=== PATIENT | male | born 1955 | race African-American/Black ===

== ENCOUNTER → 2018-10-08 | Outpatient (CLI) | payer OTHER ==
--- NOTE | 2018-10-08 10:58 | CT ---
EXAMINATION TYPE: CT chest w con DATE OF EXAM: 10/08/2018 COMPARISON: NONE HISTORY: History of asbestos and coal dust exposure. CT DLP: 726 mGycm. Automated Exposure Control for Dose Reduction was Utilized. TECHNIQUE: CT scan of the thorax is performed following with IV Contrast, patient injected with 100 mL of Isovue 300. FINDINGS: LUNGS: The lungs are grossly clear, there is no concerning parenchymal mass or nodule identified. T here is no pleural effusion or pneumothorax seen. The tracheobronchial tree is patent. No calcified pleural plaques are evident. MEDIASTINUM: There are no greater than 1 cm hilar or mediastinal lymph nodes. No cardiomegaly or pe ricardial effusion is seen. There is moderate three-vessel coronary artery calcification which is no crista marker for underlying coronary artery disease. OTHER: Moderate to severe multilevel spurring in the spine. Mild to Moderate multilevel disc space na rrowing with vacuum disc phenomena. IMPRESSION: No significant acute or chronic pulmonary process.
== END | disposition home or self-care (01) ==
LOC: RADCTMAIN 07:41
PROVIDERS: ATTEND Family Medicine
DX: Z77.090 Contact with and (suspected) exposure to asbestos (principal)
CPT/HCPCS: 82565; 84520; 71260; Q9967

== ENCOUNTER → 2018-11-24 | Outpatient (CLI) | payer OTHER ==
[~2018-11-24] MED LIST: REGADENOSON 0.4 MG/5 ML SYRINGE IV ONE
--- NOTE | 2018-11-24 10:52 | EST ---
EXERCISE STRESS DATE OF SERVICE: 11/24/2018 AGE: 63 SEX: Male HT: 66" WT: 215 pounds PROTOCOL: Lexiscan Cardiolite STAGE: DURATION OF EXERCISE: HEART RATE REST: 66 BLOOD PRESSURE REST: 153/87 MAXIMUM HEART RATE ACHIEVED: 84 MAXIMUM BLOOD PRESSURE: 153/87 85% MPHR: 133 100% MPHR: 157 METS: INDICATIONS: Abnormal CT scan. CLINICAL INFORMATION: Baseline EKG shows sinus rhythm, normal axis, normal intervals. Patient was given intravenous Lexiscan as per protocol. Did not have chest pain or diagnostic ST-segment depression. CONCLUSIONS: 1. Negative stress test by EKG criteria. 2. Cardiolite portion of the stress test will be reported separately. MMODL / IJN: [id number] /
--- NOTE | 2018-11-24 17:59 | NM ---
EXAMINATION TYPE: NM stress lexiscan cardiolite DATE OF EXAM: 11/24/2018 COMPARISON: NONE HISTORY: 63-year-old male atherosclerosis of other coronaries, CAD. TECHNIQUE: After the intravenous administration of 9.67 mCi Tc 99m Sestamibi - Cardiolite resting SP ECT images acquired 45 minutes post injection. The patient received 0.4mg Lexiscan, 25.4 mCi Tc 99m Sestamibi - Stress images obtained [address] injection FINDINGS: Review of stress and rest SPECT images demonstrates no distinct perfusion abnormality. There is GI a ctivity adjacent to the inferior wall. Gated analysis shows normal wall motion with an estimated left ventricular ejection fraction of 54 %. TID is calculated at 1.06, within normal limits. IMPRESSION: No scintigraphic evidence for reversible ischemia. LVEF is estimated borderline diminished at 54%. Cl inically correlate.
== END | disposition home or self-care (01) ==
LOC: RADNMMAIN 07:59
PROVIDERS: ATTEND Family Medicine
DX: I20.9 Angina pectoris, unspecified (principal)
CPT/HCPCS: 93017; 78452; A9500; J2785

== ENCOUNTER 2021-04-09 08:08 | Day surgery (SDC) | payer MEDICARE, OTHER ==
[2021-04-08 10:03] VITALS: BMI 41.9
[~2021-04-09 08:08] MED LIST changes: +LACTATED RINGERS 1,000 ML IV SCH; +LIDOCAINE 1% (10MG/ML) FOR IV START INTRADERMA PRN; -REGADENOSON 0.4 MG/5 ML SYRINGE IV ONE
[2021-04-09 08:40] VITALS: TEMP 98
[2021-04-09] MEDS ORDERED: PROPOFOL 10 MG/ML 20 ML VIAL IV ONE (08:48)
[2021-04-09] MEDS ORDERED: LIDOCAINE 1% INJ 10MG/ML (20 ML MDV) ONE (08:48)
--- NOTE | 2021-04-09 08:51 | P.GSHP ---
History of Present Illness H&P Date: 04/09/21 Chief Complaint: GERD, rectal bleeding 65-year-old male here today for upper and lower endoscopy. Patient with intermittent 1 per rectum and chronic reflux. No dysphagia. No change in bowel habits otherwise. No family history of colon cancer. Past Medical History Past Medical History: GERD/Reflux, Hyperlipidemia, Sleep Apnea/CPAP/BIPAP Additional Past Medical History / Comment(s): C PAP MACHINE, History of Any Multi-Drug Resistant Organisms: None Reported Past Surgical History: Appendectomy Additional Past Surgical History / Comment(s): ANAL FISTULA REPAIR. COLONOSCOPY. BILAT CATARACTS REMOVED Past Anesthesia/Blood Transfusion Reactions: No Reported Reaction Smoking Status: Light tobacco smoker - Past Family History Father Family Medical History: Cancer Sister(s) Family Medical History: Cancer Medications and Allergies Home Medications Medication Instructions Recorded Confirmed Type Famotidine [Pepcid] 40 mg PO DAILY PRN 04/08/21 04/08/21 History Loratadine [Claritin] 10 mg PO DAILY 04/08/21 04/08/21 History Rosuvastatin [Crestor] 20 mg PO HS 04/08/21 04/08/21 History Sildenafil [Revatio] 20 mg PO DIRECTED PRN 04/08/21 04/08/21 History Allergies Allergy/AdvReac Type Severity Reaction Status Date / Time No Known Allergies Allergy Verified 06/02/14 11:10 Surgical - Exam Vital Signs Temp Pulse Resp BP Pulse Ox 98.0 F 74 18 157/87 98 04/09/21 08:39 04/09/21 08:39 04/09/21 08:39 04/09/21 08:39 04/09/21 08:39 Physical exam: General: Well-developed, well-nourished HEENT: Normocephalic, sclerae nonicteric Abdomen: Nontender, nondistended Extremities: No edema Neuro: Alert and oriented Assessment and Plan (1) Rectal bleeding Narrative/Plan: Will proceed with upper and lower endoscopy Current Visit: Yes Status: Acute Code(s): K62.5 - HEMORRHAGE OF ANUS AND RECTUM SNOMED Code(s): 73310853
--- NOTE | 2021-04-09 09:09 | P.PCN ---
Date of Procedure: 04/09/21 Procedure(s) Performed: PREOPERATIVE DIAGNOSIS: GERD, blood in stool POSTOPERATIVE DIAGNOSIS: Mild gastritis, small hiatal hernia, small hemorrhoids PROCEDURE: 1. EGD with biopsy 2. Colonoscopy ANESTHESIA: MAC SURGEON: Lasha Tracy M.D. SPECIMENS: Antrum ENDOSCOPIC PROCEDURE: The patient was on the endoscopy table in the left decubitus position. The Olympus gastroscope was inserted into the oropharynx and passed under direct visualization to the region of the third portion of the duodenum. From that point the scope was slowly withdrawn inspecting all surfaces carefully. There were no neoplastic inflammatory or polypoid lesions throughout the duodenum. The pylorus was widely patent. The stomach was carefully inspected. There was mild gastritis present. A biopsy of the antrum took place to rule out H. pylori. Retroflexion revealed a small sliding hiatal hernia. The esophagus was then carefully examined. There were no neoplastic inflammatory or polypoid lesions throughout the visualized esophagus. The patient was kept on the endoscopy table in the left decubitus position. The Olympus colonoscope was inserted into the anus and passed under direct visualization to the base of the cecum. The appendiceal orifice was visualized. From that point the scope was slowly withdrawn inspecting all surfaces carefully. There were no neoplastic inflammatory or polypoid lesions throughout the cecum, ascending, transverse, descending, sigmoid and rectum. There was no visible diverticulosis noted. Digital rectal examination revealed small hemorrhoids. The patient was taken to the recovery room in stable condition per anesthesia guidelines. RECOMMENDATIONS: Resume diet. Await biopsy results. Follow-up colonoscopy 10 years.
[2021-04-09 09:46] VITALS: BP 130/83; PULSE 66; RESP 14
== END 2021-04-09 09:54 | disposition home or self-care (01) ==
LOC: ORWHC2ENDO 08:08
PROVIDERS: ATTEND Surgery
DX: K29.50 Unspecified chronic gastritis without bleeding (principal); B96.81 Helicobacter pylori [H. pylori] as the cause of diseases classified elsewhere; K21.9 Gastro-esophageal reflux disease without esophagitis; K44.9 Diaphragmatic hernia without obstruction or gangrene; K62.5 Hemorrhage of anus and rectum; K64.9 Unspecified hemorrhoids; E78.5 Hyperlipidemia, unspecified; G47.30 Sleep apnea, unspecified; F17.200 Nicotine dependence, unspecified, uncomplicated; Z90.49 Acquired absence of other specified parts of digestive tract; Z79.899 Other long term (current) drug therapy; Z98.890 Other specified postprocedural states; Z98.42 Cataract extraction status, left eye; Z98.41 Cataract extraction status, right eye; Z80.9 Family history of malignant neoplasm, unspecified
CPT/HCPCS: 43239; 45378; J2001; J2704; 88305; 88342

== ENCOUNTER → 2023-09-15 | Outpatient (CLI) | payer MEDICARE | END | disposition home or self-care (01) | LOC: LABWHC1 09:04 | PROVIDERS: ATTEND Family Medicine | DX: E11.59 Type 2 diabetes mellitus with other circulatory complications (principal) | CPT/HCPCS: 36415; 83036 ==

== ENCOUNTER → 2023-12-30 | Outpatient (CLI) | payer MEDICARE ==
--- NOTE | 2023-12-30 09:10 | MR ---
INDICATION: Patient age:Male; 68 years old; Reason for study: R41.3 AMNESIA R29.898 SIGNS INVOLVING THE MUSCULOS; PHH. COMPARISON: None. TECHNIQUE: Multi planar, multi sequence imaging was performed through the brain. The patient was then given 11 cc of Gadavist intravenously and multi planar, T1 fat-saturation images were obtained. FINDINGS: The christiansen-white junctions, ventricular system, basal cisterns appear unremarkable. Diffusion-weighted imaging shows no evidence of restricted diffusion to suggest acute/subacute infarct. Intracranial art erial flow voids are maintained. Midline structures show no abnormality. Few foci of high T2/FLAIR si gnal intensity are seen within the periventricular and subcortical white matter. Primarily involving the frontal lobes with example including a left cervical white matter focus measuring up to 3 mm (ser ies 601, image 15). Approximately 7 foci identified. The susceptibility weighted images demonstrated few punctate foci of blooming artifact within the bilateral frontal lobes, right parietal lobe, right basal ganglia related to prior microhemorrhage. Bilateral basal ganglia calcifications. After admini stration of gadolinium, no abnormal enhancement is seen. Age-appropriate cerebral parenchymal volume. The bone marrow signal is within normal limits. The paranasal sinuses and globes are unremarkable. IMPRESSION: 1. No evidence of intracranial mass, acute/subacute infarct, or abnormal enhancement. 2. Few nonspecific white matter changes, likely related to small vessel ischemic disease. [facility], , 12/30/2023 9:08 AM
== END | disposition home or self-care (01) ==
LOC: RADMRIMAIN 06:55
PROVIDERS: ATTEND Family Medicine
DX: R41.3 Other amnesia (principal); R29.898 Other symptoms and signs involving the musculoskeletal system
CPT/HCPCS: 70553